=== PATIENT | female | born 1985 | race Caucasian/White ===

== ENCOUNTER 2025-10-03 15:40 | Inpatient (IN) | payer SELFPAY ==
[~2025-10-03 15:40] MED LIST: Iopamidol-370 76% 500 ML MDV (1 ML CHARGE) ONE
[2025-10-03 16:11] LABS: #Basophils 0.05 10x3/uL (0.0-0.2); #Eosinophils 0.03 10x3/uL (0.0-0.7); #Monocytes 0.37 10x3/uL (0.11-0.59); #Neutrophils 9.42 10x3/uL (1.40-6.50); %Basophils 0.5 % (0.0-1.0); %Eosinophils 0.3 % (0.0-10.0); %Lymphocytes 8.8 % (21.0-51.0); %Monocytes 3.4 % (0.0-10.0); %Neutrophils 86.4 % (42.0-75.0); Hematocrit 39.5 % (36.0-47.0); Hemoglobin 13.2 g/dL (12.0-16.0); Mean Corpuscular Hemoglobin 30.8 pg (27.0-31.0); Mean Corpuscular Volume 92.3 fL (78.0-98.0); Platelet Count 287 10x3/uL (130-400); Red Blood Cell (RBC) Count 4.28 mill/uL (4.20-5.40); White Blood Cell (WBC) Count 10.90 10x3/uL (4.8-10.8)
[2025-10-03 16:24] LABS: INR-International Normal Ratio 1.0; PTT 26.0 sec (22.9-36.1); Prothrombin Time 13.5 sec (12.0-14.7)
[2025-10-03 16:25] LABS: ALT (SGPT) 25 U/L (Less than 34); AST (SGOT) 38 U/L (11-34); Albumin 4.2 g/dL (3.1-4.5); Alkaline Phosphatase 63 U/L (40-110); Anion Gap 18 mmol/L (10-20); BUN (Urea Nitrogen) 6 mg/dL (7.0-18.7); Bilirubin, Total 0.2 mg/dL (0.3-1.2); Calc. Creatinine Clearance 0 mL/min (70-130); Calcium 9.0 mg/dL (7.8-10.44); Carbon Dioxide 22 mmol/L (22-29); Chloride 108 mmol/L (98-107); Globulin 2.6 g/dL (2.4-3.5); Glucose 118 mg/dL (70-105); Lipase 27 U/L (8-78); Potassium 3.4 mmol/L (3.5-5.1); Sodium 145 mmol/L (136-145)
[2025-10-03 16:36] LABS: BHCG - Serum Negative (NEGATIVE); Pregs Control Background? CLEAR/WHITE (CLR/WHITE); Pregs Control Bar Appear? YES (CONTROL BAR)
[2025-10-03] MEDS ORDERED: Dextrose 50% Abboject 50 ML SYRINGE SLOW IVP PRN (18:26)
[2025-10-03] MEDS ORDERED: hydrALAZINE 20 MG/ML VIAL SLOW IVP PRN (18:26)
[2025-10-03] MEDS ORDERED: Glucagon 1 MG/ML KIT IM PRN (18:26)
[2025-10-03] MEDS ORDERED: Ondansetron PF 4 MG/2 ML Vial IVP PRN (18:26)
[2025-10-03] MEDS ORDERED: Ondansetron PF 4 MG/2 ML Vial ONE (18:38)
[2025-10-03] MEDS ORDERED: Ketorolac Tromethamine 30 MG (1 mL) VIAL ONE (18:50)
[2025-10-03 20:00] LABS: Bacteria/HPF None Seen HPF (None Seen); CAUTI Indications for Culture Acute Hematuria; Glucose, Urine (Dipstick) Normal (Negative); Leukocyte Negative Leu/uL (Negative); Protein, Urine (Dipstick) Negative (Neg-Trace); RBC/HPF 0-3 HPF (0-3); Specific Gravity, Urine 1.047 (1.002-1.036); WBC/HPF 0-3 HPF (0-3)
[2025-10-03 20:06] LABS: Cocaine Metabolite Screen Negative (Negative); THC/Cannabinoid Screen Negative (Negative); Tricyclic Screen Negative (Negative); Urine Culture Reflex No No
[2025-10-03] MEDS ORDERED: Bacitracin 1 PK ONE (20:07)
[2025-10-03 21:17] VITALS: BMI 23.8
[2025-10-03] MEDS: Methocarbamol 500 MG TAB PO PRN (21:43)
[2025-10-03] MEDS: Senokot S 8.6-50 MG TAB PO SCH (21:43)
[2025-10-03] MEDS: Gabapentin 300 MG CAP PO SCH (21:43)
[2025-10-04 03:53] LABS: #Basophils 0.03 10x3/uL (0.0-0.2); #Eosinophils Less than 0.03 10x3/uL (0.0-0.7); #Monocytes 0.74 10x3/uL (0.11-0.59); #Neutrophils 6.99 10x3/uL (1.40-6.50); %Basophils 0.3 % (0.0-1.0); %Eosinophils 0.0 % (0.0-10.0); %Lymphocytes 9.3 % (21.0-51.0); %Monocytes 8.6 % (0.0-10.0); %Neutrophils 81.3 % (42.0-75.0); Hematocrit 34.1 % (36.0-47.0); Hemoglobin 10.9 g/dL (12.0-16.0); Mean Corpuscular Hemoglobin 30.5 pg (27.0-31.0); Mean Corpuscular Volume 95.5 fL (78.0-98.0); Platelet Count 197 10x3/uL (130-400); Red Blood Cell (RBC) Count 3.57 mill/uL (4.20-5.40); White Blood Cell (WBC) Count 8.60 10x3/uL (4.8-10.8)
[2025-10-04 04:17] LABS: Anion Gap 12 mmol/L (10-20); BUN (Urea Nitrogen) 8 mg/dL (7.0-18.7); Calc. Creatinine Clearance 165 mL/min (70-130); Calcium 8.1 mg/dL (7.8-10.44); Carbon Dioxide 24 mmol/L (22-29); Chloride 106 mmol/L (98-107); Glucose 104 mg/dL (70-105); Potassium 3.3 mmol/L (3.5-5.1); Sodium 139 mmol/L (136-145)
[2025-10-04] MEDS ORDERED: Potassium Chloride 20 MEQ in Premix 1 BAG IVPB PRN (07:45)
[2025-10-04] MEDS ORDERED: PHOS-NAK 1 PKT PACK PO PRN (07:45)
[2025-10-04] MEDS ORDERED: Magnesium 2 GM/50 ML(in water) 2 GM in Premix 1 BAG IVPB PRN (07:45)
[2025-10-04] MEDS: Acetaminophen 325 MG TAB PO PRN (09:00)
[2025-10-04] MEDS ORDERED: Ondansetron PF 4 MG/2 ML Vial ONE (12:18)
[2025-10-04] MEDS ORDERED: fentaNYL PF 100 MCG/2 ML SYRINGE ONE (12:18)
[2025-10-04] MEDS ORDERED: Lidocaine 1% PF 5 ML VIAL ONE (12:18)
[2025-10-04] MEDS ORDERED: Ropivacaine 0.5% HCl/PF (150 MG/30 ML VIAL) ONE (12:38)
[2025-10-04] MEDS ORDERED: CEFAZOLIN 2 GM VIAL ONE (12:49)
[2025-10-04] MEDS ORDERED: PROPOFOL 200 MG/20 ML VIAL ONE (13:32)
[2025-10-04] MEDS ORDERED: PHENYLEPHRINE-NS 100 MCG/ML 10 ML SYRINGE ONE ×2 (13:36→14:21)
[2025-10-04] MEDS ORDERED: HYDROmorphone 0.5 MG/0.5 ML SYRINGE ONE ×2 (15:09→15:22)
[2025-10-04 18:20] LABS: Potassium 3.4 mmol/L (3.5-5.1)
[2025-10-04] MEDS ORDERED: HYDROmorphone 0.5 MG/0.5 ML SYRINGE SLOW IVP SCH (19:30)
[2025-10-04] MEDS: HYDROmorphone 0.5 MG/0.5 ML SYRINGE SLOW IVP SCH (19:44)
[2025-10-04] MEDS: Acetaminophen 325 MG TAB PO SCH (23:54)
[2025-10-04] MEDS: Methocarbamol 500 MG TAB PO SCH (23:54)
[2025-10-05 05:38] LABS: #Basophils Less than 0.03 10x3/uL (0.0-0.2); #Eosinophils 0.03 10x3/uL (0.0-0.7); #Monocytes 0.58 10x3/uL (0.11-0.59); #Neutrophils 6.45 10x3/uL (1.40-6.50); %Basophils 0.3 % (0.0-1.0); %Eosinophils 0.4 % (0.0-10.0); %Lymphocytes 10.3 % (21.0-51.0); %Monocytes 7.3 % (0.0-10.0); %Neutrophils 81.3 % (42.0-75.0); Hematocrit 28.6 % (36.0-47.0); Hemoglobin 9.2 g/dL (12.0-16.0); Mean Corpuscular Hemoglobin 30.9 pg (27.0-31.0); Mean Corpuscular Volume 96.0 fL (78.0-98.0); Platelet Count 149 10x3/uL (130-400); Red Blood Cell (RBC) Count 2.98 mill/uL (4.20-5.40); White Blood Cell (WBC) Count 7.93 10x3/uL (4.8-10.8)
[2025-10-05 05:47] LABS: Anion Gap 9 mmol/L (10-20); BUN (Urea Nitrogen) 5 mg/dL (7.0-18.7); Calc. Creatinine Clearance 165 mL/min (70-130); Calcium 7.6 mg/dL (7.8-10.44); Carbon Dioxide 24 mmol/L (22-29); Chloride 104 mmol/L (98-107); Glucose 164 mg/dL (70-105); Potassium 3.1 mmol/L (3.5-5.1); Sodium 134 mmol/L (136-145)
[2025-10-05] MEDS: Enoxaparin 40 MG (0.4 mL) SYRINGE SC SCH (09:00)
[2025-10-05] MEDS: HYDROcodone/Acetaminophen 5/325 mg Tablet PO PRN (09:12)
[2025-10-05 10:20] LABS: Potassium 3.6 mmol/L (3.5-5.1)
[2025-10-06 06:05] LABS: #Basophils 0.03 10x3/uL (0.0-0.2); #Eosinophils 0.06 10x3/uL (0.0-0.7); #Monocytes 0.38 10x3/uL (0.11-0.59); #Neutrophils 6.07 10x3/uL (1.40-6.50); %Basophils 0.4 % (0.0-1.0); %Eosinophils 0.8 % (0.0-10.0); %Lymphocytes 10.2 % (21.0-51.0); %Monocytes 5.2 % (0.0-10.0); %Neutrophils 82.9 % (42.0-75.0); Hematocrit 28.4 % (36.0-47.0); Hemoglobin 9.3 g/dL (12.0-16.0); Mean Corpuscular Hemoglobin 31.2 pg (27.0-31.0); Mean Corpuscular Volume 95.3 fL (78.0-98.0); Platelet Count 150 10x3/uL (130-400); Red Blood Cell (RBC) Count 2.98 mill/uL (4.20-5.40); White Blood Cell (WBC) Count 7.33 10x3/uL (4.8-10.8)
[2025-10-06 06:22] LABS: Anion Gap 11 mmol/L (10-20); BUN (Urea Nitrogen) 5 mg/dL (7.0-18.7); Calc. Creatinine Clearance 197 mL/min (70-130); Calcium 8.3 mg/dL (7.8-10.44); Carbon Dioxide 25 mmol/L (22-29); Chloride 106 mmol/L (98-107); Glucose 126 mg/dL (70-105); Potassium 3.8 mmol/L (3.5-5.1); Sodium 138 mmol/L (136-145)
[2025-10-06 08:16] VITALS: TEMP 97.8
[2025-10-06 12:50] VITALS: BP 124/73
== END 2025-10-06 14:10 | disposition home or self-care (01) | DRG 494 ==
LOC: ERS 15:40 → SURG A 18:33 → OBSVTOIN 10-04 11:03
PROVIDERS: ADMIT Surgery; ATTEND Surgery
PROC: 0QSG04Z Reposition Right Tibia with Internal Fixation Device, Open Approach (ICD-10-PCS; principal; 2025-10-04)
PROC: 0QSH04Z Reposition Left Tibia with Internal Fixation Device, Open Approach (ICD-10-PCS; 2025-10-04)
PROC: 3E03329 Introduction of Other Anti-infective into Peripheral Vein, Percutaneous Approach (ICD-10-PCS; 2025-10-04)
DX: S82.141A Displaced bicondylar fracture of right tibia, initial encounter for closed fracture (principal); S82.52XA Displaced fracture of medial malleolus of left tibia, initial encounter for closed fracture; F41.9 Anxiety disorder, unspecified; F32.A Depression, unspecified; F15.10 Other stimulant abuse, uncomplicated; F17.210 Nicotine dependence, cigarettes, uncomplicated; Z88.8 Allergy status to other drugs, medicaments and biological substances; Z88.2 Allergy status to sulfonamides; V69.40XA Driver of heavy transport vehicle injured in collision with unspecified motor vehicles in traffic accident, initial encounter; Z79.899 Other long term (current) drug therapy; Z98.51 Tubal ligation status; Z98.890 Other specified postprocedural states
CPT/HCPCS: 29515; 36415; 51701; 70450; 71045; 71260; 72125; 72170; 74177; 80048; 80053; 80306; 80307; 81001; 83690; 84703; 85025; 85610; 85730; 86850; 86900; 86901; 93005; 94760; 96374; 96375; 96376; C1713; C1889; G0390; J0169; J0665; J1100; J1171; J1650; J1885; J2250; J2270; J2405; J2704; J2795; J3010; J7120; Q9967